=== PATIENT | male | born 1950 ===

== ENCOUNTER 2019-04-04 13:51 | Observation (INO) | payer OTHER, SELFPAY ==
[2019-04-04 17:20] VITALS: BMI 29.1
[2019-04-04] MEDS ORDERED: Acetaminophen 650 MG Suppository PR PRN (19:21)
[2019-04-04] MEDS ORDERED: Acetaminophen 325 MG TAB PO PRN (19:21)
[2019-04-04 19:57] LABS: #Eosinphils 0.1 thou/uL (0.0-0.7); #Lymphocytes 1.9 thou/uL (1.20-3.40); #Monocytes 0.6 thou/uL (0.11-0.59); #Neutrophils 4.8 thou/uL (1.40-6.50); %Basophils 0.5 % (0.0-1.0); %Eosinophils 1.9 % (0.0-10.0); %Lymphocytes 25.9 % (21.0-51.0); %Monocytes 7.4 % (0.0-10.0); %Neutrophils 64.4 % (42.0-75.0); Mean Corpuscular Hemoglobin 31.5 pg (27.0-31.0); Mean Corpuscular Volume 92.5 fL (78.0-98.0); Platelet Count 167 thou/uL (130-400); RBC Distribution Width 12.8 % (11.5-14.5); Red Blood Cell (RBC) Count 4.45 mill/uL (4.70-6.10); White Blood Cell (WBC) Count 7.5 thou/uL (4.8-10.8)
[2019-04-04 20:20] LABS: ALT (SGPT) 13 U/L (8-55); AST (SGOT) 17 U/L (5-34); Albumin 3.8 g/dL (3.4-4.8); Alkaline Phosphatase 66 U/L (40-110); Anion Gap 11 mmol/L (10-20); BUN (Urea Nitrogen) 16 mg/dL (8.4-25.7); Bilirubin, Total 1.2 mg/dL (0.2-1.2); Calc. Creatinine Clearance 92 mL/min (70-130); Carbon Dioxide 24 mmol/L (23-31); Chloride 107 mmol/L (98-107); Estimated GFR-MDRD 84; Globulin 2.5 g/dL (2.4-3.5); Glucose 128 mg/dL (80-115); Magnesium 1.9 mg/dL (1.6-2.6); Potassium 3.8 mmol/L (3.5-5.1); Protein, Total 6.3 g/dL (5.8-8.1); Sodium 138 mmol/L (136-145)
--- NOTE | 2019-04-04 20:26 | HP ---
TIME OF ASSESSMENT: 1700. CHIEF COMPLAINT: Chest pain. HISTORY OF PRESENT ILLNESS: Mr. Ying is a 69-year-old gentleman with known coronary artery disease who has had stent placed in the past, presenting with complaints of chest pain that started early hours this morning at approximately 4:00 a.m. The patient is in detention. He states the pain was at 8/10 in severity, described as if something was pressing on his chest. He states this discomfort was nonradiating. He did not experience any nausea, vomiting, or diaphoresis. Denies any shortness of breath, cough, or hemoptysis. The patient states this discomfort continued throughout the morning and later was advised to see the nurse at the [facility]. The patient was brought to the emergency department at the [facility]. He states he was given nitroglycerin at the detention, which helped to bring his pain down to a 5/10. On arrival to the emergency department at the [facility], he was given a GI cocktail, which he states took his discomfort completely away. He has had no recurrent pain since then. The patient also did receive aspirin in addition to the nitroglycerin by EMS en route to the ER. He is now being transferred here for further observation and workup. REVIEW OF SYSTEMS: At this present time, the patient denies having any pain. He states he feels back to baseline and is without any complaints. PAST MEDICAL HISTORY: 1. Hypertension. 2. CAD. 3. History of MO. 4. Arthritis. 5. History of symptomatic bradycardia requiring permanent pacemaker. PAST SURGICAL HISTORY: 1. Stents x1. 2. Dual chamber pacemaker placement. SOCIAL HISTORY: Patient is in detention. Denies any history of tobacco use. ALLERGIES: NO KNOWN DRUG ALLERGIES. CURRENT MEDICATIONS: 1. Aspirin. 2. Atorvastatin. 3. Coreg. 4. Omeprazole. 5. Terazosin. PHYSICAL EXAMINATION: GENERAL: The patient appears well developed, well nourished, is in no acute distress. VITAL SIGNS: Temperature 98.7, pulse 60, respirations 20, O2 saturation 94% on room air, blood pressure 146/70. HEENT: Normocephalic and atraumatic. Pupils are equal, round, and reactive to light. Sclerae without icterus. Oropharynx is clear. NECK: Supple without lymphadenopathy. LUNGS: Clear to auscultation bilaterally without any wheezes, rales, or rhonchi. CARDIAC: Regular rate and rhythm without audible murmurs, rubs, or gallops. ABDOMEN: Soft, nontender, nondistended. Normoactive bowel sounds present. No guarding or rigidity. No renal angle tenderness. EXTREMITIES: No lower leg swelling or edema. NEUROLOGIC: Alert and oriented x3. SKIN: Warm and dry. INVESTIGATIONS: Laboratory studies done, but no report available in the chart. Troponin reportedly normal. We will obtain full set of labs here. Chest x-ray per report obtained from CD sent with his records. Chest x-ray showed no acute intrathoracic abnormality. Heart size normal. IMPRESSION AND PLAN: Mr. Ying is a 69-year-old gentleman who is being admitted for management of the following. 1. Acute coronary syndrome rule out. The patient states he is pain-free ever since he received a GI cocktail. The nitroglycerin and aspirin given en route to the hospital brought his pain from a 7/10 to 5/10. EKG done in the ED showed a ventricularly paced rhythm. We will obtain pacemaker printout. We will continue to trend troponins. The patient states he had an echo done at the [facility] before being transferred here. We will attempt to obtain these records, otherwise may need to have an echo done here. Stress test ordered. N.p.o. at midnight. TSH, magnesium, and lipid panel to be done in addition to CBC and CMP. 2. Hypertension. Monitor blood pressure and resume home medications once verified. 3. Gastroesophageal reflux disease. The patient states he has history of reflux and has had endoscopy, but several years ago. He is currently on Protonix. We will increase to b.i.d. 4. Coronary artery disease. Resume home medications once verified. 5. Code status is full. Surrogate decision maker is not established at this present time. The patient is currently in detention. Case to be discussed with attending for further recommendations. Job ID: [id number]
[2019-04-04] MEDS ORDERED: Terazosin HCl 5 MG CAP PO SCH (21:00)
[2019-04-04] MEDS: Carvedilol 3.125 MG TAB PO SCH (21:41)
[2019-04-05 05:46] LABS: #Eosinphils 0.1 thou/uL (0.0-0.7); #Lymphocytes 1.7 thou/uL (1.20-3.40); #Monocytes 0.6 thou/uL (0.11-0.59); #Neutrophils 5.6 thou/uL (1.40-6.50); %Basophils 0.6 % (0.0-1.0); %Eosinophils 1.9 % (0.0-10.0); %Lymphocytes 20.6 % (21.0-51.0); %Monocytes 7.5 % (0.0-10.0); %Neutrophils 69.6 % (42.0-75.0); Hemoglobin 14.4 g/dL (14.0-18.0); Mean Corpuscular HGB CONC 34.1 g/dL (32.0-36.0); Mean Corpuscular Hemoglobin 31.4 pg (27.0-31.0); Mean Platelet Volume 8.9 fL (7.4-10.4); Platelet Count 162 thou/uL (130-400); RBC Distribution Width 12.8 % (11.5-14.5); Red Blood Cell (RBC) Count 4.59 mill/uL (4.70-6.10)
[2019-04-05 05:47] LABS: Anion Gap 12 mmol/L (10-20); BUN (Urea Nitrogen) 16 mg/dL (8.4-25.7); Calc. Creatinine Clearance 109 mL/min (70-130); Carbon Dioxide 25 mmol/L (23-31); Chloride 106 mmol/L (98-107); Estimated GFR-MDRD Greater than 90; Glucose 89 mg/dL (80-115); Potassium 4.1 mmol/L (3.5-5.1); Sodium 139 mmol/L (136-145)
[2019-04-05] MEDS: Nitroglycerin 0.4 MG TAB (25 Tab Bottle) PO PRN ×2 (06:13→07:59)
--- NOTE | 2019-04-05 07:43 | PDOC.HOSPP ---
- Subjective Encounter Date: 04/05/19 Encounter Time: 11:00 Subjective: Patient with multiple chest pain episodes overnight, resolved with nitroglycerin. No pain currently. Longstanding hx of GERD. - Objective Vital Signs & Weight: Vital Signs (12 hours) Temp Pulse Resp BP BP Pulse Ox 04/05/19 06:18 74 16 122/76 96 04/05/19 06:10 80 15 174/76 H 96 04/05/19 04:00 98.7 F 67 16 158/74 H 98 04/04/19 23:00 98.7 F 72 16 167/80 H 96 04/04/19 19:53 98.3 F 73 16 133/69 98 Weight Weight 186 lb I&O: 04/04/19 04/05/19 04/06/19 06:59 06:59 06:59 Intake Total 500 Balance 500 Result Diagrams: 04/05/19 04:37 04/05/19 04:37 Hospitalist ROS - Review of Systems Constitutional: denies: fever, chills Respiratory: denies: cough, dry, shortness of breath Cardiovascular: reports: chest pain. denies: palpitations, orthopnea Gastrointestinal: denies: nausea, vomiting, abdominal pain - Medication Medications: Active Medications Generic Name Dose Route Start Last Admin Trade Name Freq PRN Reason Stop Dose Admin Carvedilol 3.125 mg 04/04/19 21:00 04/04/19 21:41 Coreg PO 3.125 mg BID SOBIA Administration Nitroglycerin 0.4 mg 04/04/19 19:25 04/05/19 06:13 Nitrostat PO 0.4 mg Q5MIN PRN Administration Chest Pain Pantoprazole Sodium 40 mg 04/04/19 21:00 04/04/19 21:41 Protonix PO 40 mg BID SOBIA Administration Terazosin HCl 5 mg 04/04/19 21:00 04/04/19 21:41 Hytrin PO 5 mg HS SOBIA Administration - Exam General Appearance: NAD, awake alert ENT: moist mucosa Heart: RRR, no murmur, no gallops, no rubs Respiratory: CTAB, no wheezes, no rales, no ronchi Gastrointestinal: soft, non-tender, non-distended, normal bowel sounds Psychiatric: normal affect, normal behavior, A&O x 3 Hosp A/P (1) Chest pain, rule out acute myocardial infarction Code(s): R07.9 - CHEST PAIN, UNSPECIFIED Status: Acute (2) CAD (coronary artery disease) Code(s): I25.10 - ATHSCL HEART DISEASE OF [place] CORONARY ARTERY W/O ANG PCTRS Status: Chronic (3) HTN (hypertension) Code(s): I10 - ESSENTIAL (PRIMARY) HYPERTENSION Status: Chronic (4) GERD (gastroesophageal reflux disease) Code(s): K21.9 - GASTRO-ESOPHAGEAL REFLUX DISEASE WITHOUT ESOPHAGITIS Status: Chronic (5) Pacemaker, artificial Code(s): Z95.0 - PRESENCE OF CARDIAC PACEMAKER Status: Chronic - Plan Chest pain cardiac vs. GERD. Stress test this morning. PPI. If stress neg can d/ c back to [facility] on PPI. Otherwise cardiology consult.
[2019-04-05] MEDS: Carvedilol 3.125 MG TAB PO SCH (08:11)
[2019-04-05] MEDS ORDERED: Aspirin 81 mg Enteric Coated Tablet PO SCH (09:00)
[2019-04-05] MEDS ORDERED: Atorvastatin Calcium 40 MG TAB PO SCH (09:00)
[2019-04-05] MEDS ORDERED: Aspirin Chewable 81 MG TAB PO SCH (09:00)
[2019-04-05] MEDS ORDERED: ADENOSINE 60 MG/20 ML VIAL ONE (10:30)
[2019-04-05] MEDS ORDERED: Diazepam 10 MG/2 ML SYRINGE IVP SCH (11:30)
--- NOTE | 2019-04-05 15:03 | NM ---
EXAM: CARDIAC SPECT HISTORY: Chest pain, coronary disease, stent, hypertension, pacemaker TECHNIQUE: A myocardial perfusion scan was performed using the single isotope 1 day protocol with lily hnetium 99m sestamibi. [10 mCi] was injected intravenously for the rest exam followed by 30 mCi for the stress study. Pharmacologic stress with adenosine was monitored and interpreted by Naeem Acuña, nurse practitioner FINDINGS: Homogeneous tracer distribution is seen in the myocardial segments on stress and rest image s without fixed or reversible defects. Gated SPECT LVEF: 57% Wall motion exam: Normal IMPRESSION: Normal myocardial perfusion scan
[2019-04-05 16:21] VITALS: BP 145/84; TEMP 98.5
--- NOTE | 2019-04-06 02:10 | DIS ---
DATE OF ADMISSION: 04/04/2019 DATE OF DISCHARGE: 04/05/2019 PRIMARY CARE PHYSICIAN: [facility]. REASON FOR ADMISSION: Chest pain. DIAGNOSES AT DISCHARGE: 1. Chest pain, noncardiac, resolved. 2. Coronary artery disease. 3. Gastroesophageal reflux disease. 4. Hypertension. 5. Artificial pacemaker. PROCEDURES PERFORMED: Nuclear medicine stress test showing no evidence of ischemic disease. Normal myocardial perfusion study. CONSULTATIONS: None. SUMMARY OF HOSPITAL COURSE: This is a 69-year-old white male, inmate of [facility], who has known coronary artery disease, had a stent placed in the past, presented complaining of chest pain started early in the morning, described as 8/10 severity, is like someone pressing on his chest. The patient was eventually brought to the emergency department at the [facility]. He was given nitroglycerin at the jail, which helped some. At the [facility], he was given a GI cocktail, which resolved the rest of his pain. He was then transferred to our hospital for evaluation. His EKGs were normal. Cardiac marker sets were negative x3. While he was in the hospital, we did a nuclear medicine stress test on the day of discharge, which was normal. He did have a couple of episodes of recurrent pain resolved with nitroglycerin in the hospital. He had no EKG changes. No telemetry abnormalities. Most likely this pain is actually GI in origin, so we are increasing his Protonix over his PPI to twice a day and discharging him back to jail. DISCHARGE MANAGEMENT: Discharged to jail. ACTIVITY: As tolerated. DIET: Healthy heart diet. FOLLOWUP: Follow up at the jail physician in the next 7 days. DISCHARGE MEDICATIONS: 1. Atorvastatin 40 mg daily. 2. Carvedilol 3.125 mg twice a day. 3. Nitroglycerin as needed for pain. 4. Protonix 40 mg twice a day. 5. Terazosin 5 mg at night. 6. Aspirin 81 mg daily. Job ID: [id number]
--- NOTE | 2019-04-06 14:43 | STRESS ---
Acquisition Time: 2019-04-05 12:55:56 Total Exercise Time: 00:04:00 Test Indications: CHEST PAIN Medications: Protocol: ADENOSINE Max HR: 106 BPM 70% of Pred: 151 BPM Max BP: 140/078 mmHG Max Work Load: 1.0 METS RESTING ECG: PACED AT 82 BPM SYMPTOMS: NONE NORMAL BLOOD PRESSURE RESPONSE ECTOPY: NONE ECG REPSONSE: NO SIGNIFICANT CHANGES INTERPRETATION: INDETERMINATE ECG/AWAIT NUCLEAR IMAGES FOR DEFINITIVE DIAGNOSIS Confirmed by MAYTE BUCKNER ([id number]), tape editor MAXX FISH ([id number]) on 04/06/2019 2:42:42 PM Referred By: LASHELL GAONA Confirmed By:MAYTE BUCKNER
== END 2019-04-05 18:04 ==
LOC: 2SW 16:31
PROVIDERS: ADMIT Internal Medicine; ATTEND Emergency Medicine
DX: R07.89 Other chest pain (principal); I25.10 Atherosclerotic heart disease of native coronary artery without angina pectoris; K21.9 Gastro-esophageal reflux disease without esophagitis; I10 Essential (primary) hypertension; I25.2 Old myocardial infarction; M19.90 Unspecified osteoarthritis, unspecified site; Z79.82 Long term (current) use of aspirin; Z79.899 Other long term (current) drug therapy; Z95.0 Presence of cardiac pacemaker; Z95.5 Presence of coronary angioplasty implant and graft
CPT/HCPCS: 36415; 78452; 80048; 80053; 83735; 83880; 84443; 84484; 85025; 93005; 93010; 93017; 94760; A9500; G0378; J0153